=== PATIENT | female | born 1955 | race Caucasian/White ===

== ENCOUNTER 2017-09-25 12:49 | Inpatient (IN) | payer OTHER ==
[~2017-09-25] VITALS: Ht 160 cm; Wt 35.8 kg
[2017-09-25] MEDS ORDERED: SODIUM CHLORIDE 0.9% 500ML 500 ML IV STA (13:11)
[2017-09-25] MEDS ORDERED: CLINDAMYCIN PHOS 900MG/ D5W 50 50 ML IV ONE (13:15)
[2017-09-25] MEDS ORDERED: HYDROCODONE/APAP 10MG-325MG TAB PO ONE (13:15)
--- NOTE | 2017-09-25 14:48 | Diagnostic Imaging Report ---
PROCEDURE:X-RAY RIGHT FOOT, COMPLETE COMPARISON:None. INDICATIONS:SWELLING TWO WEEKS FINDINGS: Normal mineralization. No acute, displaced fracture or dislocation. No areas of cortical erosion or destruction. Degenerative changes in the midfoot/hindfoot joints. Large anterior calcaneal enthesophyte. Marked soft tissue swelling in the plantar and dorsal aspect of the foot. CONCLUSION: Marked soft tissue swelling in the plantar and dorsal aspect of the foot, without acute, displaced fracture or dislocation. Orion Smith M.D. Dictated by: Orion Smith M.D. on 09/25/2017 at 14:48 Electronically approved by: Orion Smith M.D. on 09/25/2017 at 14:48
[2017-09-25 16:11] LABS: BASOPHILS % 0.3 % (0.0-1.0); EOSINOPHILS # (AUTO) 0.2 (0.0-0.4); HEMATOCRIT 38.5 % (34.2-44.1); HEMOGLOBIN 13.4 g/dL (12.0-16.0); LYMPHOCYTES # (AUTO) 2.3 (1.0-3.2); LYMPHOCYTES % 14.8 % (18.0-39.1); MEAN CORPUSCULAR HEMOGLOBIN 29.6 pg (28-32); MEAN CORPUSCULAR HGB CONC 34.8 g/dL (31-35); MEAN CORPUSCULAR VOLUME 85.2 fL (81-99); MONOCYTES # (AUTO) 0.9 (0.2-0.8); MONOCYTES % 5.8 % (4.4-11.3); NEUTROPHILS # (AUTO) 11.8 (2.1-6.9); NEUTROPHILS % 77.7 % (38.7-80.0); PLATELET COUNT 452 x10e3/uL (140-360); RED BLOOD COUNT 4.52 x10e6/uL (3.6-5.1); RED CELL DISTRIBUTION WIDTH 12.1 % (11.7-14.4)
[2017-09-25 16:13] LABS: BILIRUBIN,URINE NEGATIVE (NEGATIVE); CLARITY,URINE CLOUDY (CLEAR); COLOR,URINE YELLOW (YELLOW); KETONES,URINE 1+ (NEGATIVE); LEUKOCYTE ESTERASE ,URINE 2+ (NEGATIVE); NITRITE,URINE NEGATIVE (NEGATIVE); PROTEIN,URINE DIPSTICK 1+ (NEGATIVE); URINE UROBILINOGEN 1 mg/dL (0.2 - 1)
[2017-09-25] MEDS ORDERED: METFORMIN HCL850 MG PO (16:13)
[2017-09-25] MEDS ORDERED: GLIPIZIDE5 MG PO (16:13)
[2017-09-25] MEDS ORDERED: NEXIUM40 MG PO (16:13)
[2017-09-25 16:25] LABS: BACTERIA,URINE FEW /HPF; EPITHELIAL CELLS,URINE RARE /LPF; YEAST,URINE FEW
[2017-09-25 16:32] LABS: ALANINE AMINOTRANSFERASE 13 IU/L (0-55); ALBUMIN 3.4 g/dL (3.5-5.0); ALBUMIN/GLOBULIN RATIO 0.7 (0.8-2.0); ALKALINE PHOSPHATASE 128 IU/L (40-150); ANION GAP 13.9 mmol/L (8-16); BLOOD UREA NITROGEN 10 mg/dL (7-26); BUN/CREATININE RATIO 11 (6-25); CALCIUM 9.6 mg/dL (8.4-10.2); CARBON DIOXIDE 23 mmol/L (22-29); CHLORIDE 100 mmol/L (98-107); CREATININE, SERUM 0.87 mg/dL (0.57-1.11); EST GLOMERULAR FILTRATION RATE > 60 ML/MIN (60-); GLUCOSE 266 mg/dL (74-118); POTASSIUM 3.9 mmol/L (3.5-5.1); SODIUM 133 mmol/L (136-145)
[2017-09-25] MEDS ORDERED: DEXTROSE 50% SYRINGE 50 ML IV PRN (17:00)
[2017-09-25] MEDS ORDERED: SODIUM CHLORIDE FLUSH 10 ML SYR INJ PRN (17:00)
--- OUTSIDE RECORDS SUMMARY | 2017-09-25 19:26 | XMS REPORT ---
Author [facility] Address Unknown Phone Unavailable Care Team Providers Care Afterschool Name Role Phone JULIANA GUEVARA Unavailable Unavailable Problems This patient has no known problems. Allergies, Adverse Reactions, Alerts This patient has no known allergies or adverse reactions. Medications This patient has no known medications. Results Test Description Test Time Test Comments Text Results Atomic Results Result Comments FOOT RIGHT COMPLETE [place] [address] Patient Name: VELIA HUI MR #: [id number] : 1955 Age/Sex: 61/F Req #: [id number] Adm Physician: Ordered by: CLARISSE CAMARILLO [employer]BC[employer]ACT MANAGER Report #: [id number] Location: ER Room/Bed: Procedure: [id number] DX/FOOT RIGHT COMPLETE Exam Date: Exam Time: REPORT STATUS: Signed PROCEDURE: X-RAY RIGHT FOOT, COMPLETE COMPARISON: None. INDICATIONS: SWELLING TWO WEEKS FINDINGS: Normal mineralization. No acute, displaced fracture or dislocation. No areas of cortical erosion or destruction. Degenerative changes in the midfoot/hindfoot joints. Large anterior calcaneal enthesophyte. Marked soft tissue swelling in the plantar and dorsal aspect of the foot. CONCLUSION: Marked soft tissue swelling in the plantar and dorsal aspect of the foot, without acute, displaced fracture or dislocation. Krysta Smith M.D. Dictated by: Krysta Smith M.D. on 09/25/2017 at 14:48 Electronically approved by: Krysta Smith M.D. on 09/25/2017 at 14:48 Dictated By: KRYSTA SMITH MD [id number] Transcribed By: MERNA on 09/25/17 1448 COPY TO: CLARISSE CAMARILLO NP
[2017-09-25] MEDS: INSULIN REGULAR, HUMAN 100 UNIT/1 ML 3ML VIAL SQ SCH (21:20)
[2017-09-25 22:00] VITALS: BP 119/72
[2017-09-25 23:20] VITALS: BP 167/77
[2017-09-25] MEDS: CLONIDINE HCL 0.1 MG TAB PO PRN (23:39)
[2017-09-25] MEDS: ACETAMINOPHEN 325 MG TAB PO PRN (23:39)
[2017-09-25] MEDS: CLINDAMYCIN PHOS 900MG/ D5W 50 50 ML IV SCH (23:54)
[2017-09-26 03:34] VITALS: BP 126/69
[2017-09-26 05:00] VITALS: BP 102/57
[2017-09-26] MEDS ORDERED: PROVENTIL HFA6.7 GM IH (05:25)
[2017-09-26] MEDS: CLINDAMYCIN PHOS 900MG/ D5W 50 50 ML IV SCH ×3 (06:15→21:11)
[2017-09-26] MEDS: HYDROMORPHONE 1MG/1ML INJ IV PRN (06:32)
[2017-09-26] MEDS: INSULIN REGULAR, HUMAN 100 UNIT/1 ML 3ML VIAL SQ SCH ×4 (07:30→20:53)
[2017-09-26] MEDS: ONDANSETRON HCL INJ 2 MG/ML VIAL IV PRN (08:19)
[2017-09-26 08:28] VITALS: BP 180/86
[2017-09-26] MEDS ORDERED: SODIUM CHLORIDE 0.9% 250ML 250 ML ONE (15:31)
[2017-09-26] MEDS: ACETAMINOPHEN 325 MG TAB PO PRN (19:37)
[2017-09-26 20:00] VITALS: BP 142/76
[2017-09-27] VITALS (7 sets, daily range): BP systolic 134–180; BP diastolic 66–84
[2017-09-27] MEDS: ONDANSETRON HCL INJ 2 MG/ML VIAL IV PRN ×2 (00:54→08:35)
[2017-09-27] MEDS: HYDROMORPHONE 1MG/1ML INJ IV PRN ×3 (00:54→19:44)
[2017-09-27] MEDS: CLINDAMYCIN PHOS 900MG/ D5W 50 50 ML IV SCH ×3 (06:00→22:00)
[2017-09-27] MEDS: INSULIN REGULAR, HUMAN 100 UNIT/1 ML 3ML VIAL SQ SCH ×4 (07:45→21:00)
[2017-09-27] MEDS: CLONIDINE HCL 0.1 MG TAB PO PRN (08:30)
[2017-09-28] VITALS (7 sets, daily range): BP systolic 115–170; BP diastolic 50–80
[2017-09-28] MEDS: CLINDAMYCIN PHOS 900MG/ D5W 50 50 ML IV SCH ×2 (05:02→13:43)
[2017-09-28] MEDS: ONDANSETRON HCL INJ 2 MG/ML VIAL IV PRN (05:03)
[2017-09-28] MEDS: HYDROMORPHONE 1MG/1ML INJ IV PRN ×2 (05:03→22:15)
[2017-09-28] MEDS: INSULIN REGULAR, HUMAN 100 UNIT/1 ML 3ML VIAL SQ SCH ×4 (07:35→21:00)
[2017-09-28 08:51] LABS: BASOPHILS % 0.4 % (0.0-1.0); EOSINOPHILS # (AUTO) 0.2 (0.0-0.4); EOSINOPHILS % 2.3 % (0.0-6.0); HEMATOCRIT 33.6 % (34.2-44.1); HEMOGLOBIN 11.5 g/dL (12.0-16.0); LYMPHOCYTES % 19.4 % (18.0-39.1); MEAN CORPUSCULAR HEMOGLOBIN 29.5 pg (28-32); MEAN CORPUSCULAR HGB CONC 34.2 g/dL (31-35); MEAN CORPUSCULAR VOLUME 86.2 fL (81-99); MONOCYTES # (AUTO) 0.7 (0.2-0.8); MONOCYTES % 6.6 % (4.4-11.3); NEUTROPHILS # (AUTO) 7.3 (2.1-6.9); NEUTROPHILS % 70.8 % (38.7-80.0); PLATELET COUNT 440 x10e3/uL (140-360); RED CELL DISTRIBUTION WIDTH 11.9 % (11.7-14.4)
[2017-09-29] VITALS (7 sets, daily range): BP systolic 154–188; BP diastolic 67–85
[2017-09-29] MEDS: CLINDAMYCIN PHOS 900MG/ D5W 50 50 ML IV SCH ×4 (00:38→21:33)
[2017-09-29] MEDS: ACETAMINOPHEN 325 MG TAB PO PRN ×2 (01:16→17:15)
[2017-09-29 07:09] LABS: BASOPHILS % 0.4 % (0.0-1.0); EOSINOPHILS # (AUTO) 0.4 (0.0-0.4); EOSINOPHILS % 3.5 % (0.0-6.0); HEMATOCRIT 34.3 % (34.2-44.1); HEMOGLOBIN 11.6 g/dL (12.0-16.0); LYMPHOCYTES # (AUTO) 2.3 (1.0-3.2); LYMPHOCYTES % 20.7 % (18.0-39.1); MEAN CORPUSCULAR HEMOGLOBIN 29.5 pg (28-32); MEAN CORPUSCULAR HGB CONC 33.8 g/dL (31-35); MEAN CORPUSCULAR VOLUME 87.3 fL (81-99); MONOCYTES % 8.9 % (4.4-11.3); NEUTROPHILS # (AUTO) 7.3 (2.1-6.9); NEUTROPHILS % 66.1 % (38.7-80.0); PLATELET COUNT 474 x10e3/uL (140-360); RED BLOOD COUNT 3.93 x10e6/uL (3.6-5.1); RED CELL DISTRIBUTION WIDTH 11.8 % (11.7-14.4)
--- NOTE | 2017-09-29 07:40 | Diagnostic Imaging Report ---
TECHNIQUE: Magnetic resonance imaging of the RIGHT foot (forefoot) was performed WITHOUT injected contrast. HISTORY: Cellulitis, pain, swelling, bowel of foot, stepped on tack COMPARISON: Radiographs of the right foot the 2017. DISCUSSION: Bone: No focal or infiltrative bone marrow replacing abnormality. No acute fracture or osteonecrosis. Joints: No dislocation. No effusion. Scattered arthropathy, most notably mild osteoarthrosis of the first metatarsophalangeal joint and moderate arthropathy of the tarsometatarsal joints, which may be a combination of osteoarthrosis and CPPD arthropathy. Soft Tissues: A focal, somewhat ill-defined 1.6 cm (AP) x 2.2 cm (ML) x 0.7 cm (CC) fluid intensity collection within the superficial plantar soft tissues overlying the base of the second proximal phalanx. Enhancement characteristics cannot be assessed. IMPRESSION: 1. No evidence of osteomyelitis. 2. Small plantar soft tissue fluid collection, could reflect early abscess formation in the appropriate setting. Signed by: Dr. Grzegorz Flower D.O., M.M.M. on 09/29/2017 7:36 AM
[2017-09-29 08:11] LABS: ANION GAP 13.5 mmol/L (8-16); BLOOD UREA NITROGEN 12 mg/dL (7-26); BUN/CREATININE RATIO 15 (6-25); CALCIUM 9.3 mg/dL (8.4-10.2); CARBON DIOXIDE 26 mmol/L (22-29); CHLORIDE 99 mmol/L (98-107); EST GLOMERULAR FILTRATION RATE > 60 ML/MIN (60-); GLUCOSE 287 mg/dL (74-118); POTASSIUM 4.5 mmol/L (3.5-5.1); SODIUM 134 mmol/L (136-145)
[2017-09-29] MEDS: INSULIN REGULAR, HUMAN 100 UNIT/1 ML 3ML VIAL SQ SCH ×4 (09:31→21:43)
[2017-09-29] MEDS: CLONIDINE HCL 0.1 MG TAB PO PRN (09:31)
[2017-09-29] MEDS: HYDROMORPHONE 1MG/1ML INJ IV PRN ×2 (10:00→19:22)
[2017-09-29] MEDS: ONDANSETRON HCL INJ 2 MG/ML VIAL IV PRN ×2 (10:00→19:22)
[2017-09-30] VITALS (9 sets, daily range): BP systolic 131–163; BP diastolic 67–94
[2017-09-30] MEDS: ONDANSETRON HCL INJ 2 MG/ML VIAL IV PRN ×4 (04:30→21:55)
[2017-09-30] MEDS: HYDROMORPHONE 1MG/1ML INJ IV PRN ×4 (04:30→21:55)
[2017-09-30] MEDS: CLINDAMYCIN PHOS 900MG/ D5W 50 50 ML IV SCH ×3 (05:47→21:38)
[2017-09-30] MEDS: INSULIN REGULAR, HUMAN 100 UNIT/1 ML 3ML VIAL SQ SCH ×4 (08:41→21:00)
[2017-09-30] MEDS ORDERED: MAGNESIUM/ALUMINUM/SIMETHICONE 30 ML UDC PO PRN (18:30)
[2017-10-01] VITALS (7 sets, daily range): BP systolic 138–176; BP diastolic 68–95
[2017-10-01] MEDS: CLONIDINE HCL 0.1 MG TAB PO PRN (00:30)
[2017-10-01] MEDS: CLINDAMYCIN PHOS 900MG/ D5W 50 50 ML IV SCH ×3 (05:08→21:00)
[2017-10-01] MEDS: ONDANSETRON HCL INJ 2 MG/ML VIAL IV PRN ×2 (06:30→23:46)
[2017-10-01] MEDS: HYDROMORPHONE 1MG/1ML INJ IV PRN ×2 (06:30→23:46)
[2017-10-01] MEDS: INSULIN REGULAR, HUMAN 100 UNIT/1 ML 3ML VIAL SQ SCH ×4 (08:00→20:59)
--- NOTE | 2017-10-01 11:08 | Consultation ---
DATE OF CONSULTATION: September 29, 2017 CHIEF COMPLAINT AND HISTORY OF CHIEF COMPLAINT: Ms. Raymond is a most pleasant 61-year-old female who was admitted to [facility] through the emergency room complaining of severe pain and swelling of the right foot. She stated that, after thinking back about it, she does remember stepping on a tack in her house several weeks ago. She did not clean it and continued working and ultimately experienced this pain, redness and swelling. PREVIOUS MEDICAL HISTORY: Includes diabetes. She complains of no other significant previous medical history and was in her normal state of care before this happened. She was diagnosed with diabetes some 20 years ago. REVIEW OF SYSTEMS: Otherwise negative. ALLERGIES: SHE IS ALLERGIC TO PENICILLIN. SOCIAL HISTORY: The patient states she is not a smoker and does not use alcohol. PHYSICAL EXAMINATION OF LOWER EXTREMITIES VASCULAR STATUS: The patient has palpable pedal pulses, both dorsalis pedis and posterior tibial. Skin temperature is warm, particularly on the right foot. NEUROLOGIC: The patient has loss of protective sensation, but does seem to have severe pain to palpation, even light touch, at this point in the right infected extremity. There is a callused area on the plantar aspect of the right foot. DERMATOLOGIC: No other significant lesions are present. MUSCULOSKELETAL: The patient has what appears to be an abscess on the plantar aspect of the right foot. Radiographs are negative. I have ordered an MRI. We will review. If an abscess is present, I and D would be indicated. We will schedule accordingly. Job#: [id number]
[2017-10-01] MEDS ORDERED: CLINDAMYCIN PHOS 900MG/ D5W 50 50 ML IV ONE (14:26)
[2017-10-01] MEDS ORDERED: BACITRACIN 50,000 UNIT VIAL ONE (14:43)
[2017-10-01] MEDS ORDERED: NEOSTIGMINE 1 MG/ML 10ML VIAL ONE (15:35)
[2017-10-01] MEDS ORDERED: HYDROMORPHONE 1MG/1ML INJ ONE (16:29)
[2017-10-01] MEDS ORDERED: FENTANYL CITRATE/PF 100MCG/2 ML INJ ONE ×2 (16:32→19:18)
--- NOTE | 2017-10-01 18:23 | Operative Report ---
DATE OF PROCEDURE: October 01, 2017 AGE: 61 ROOM NUMBER: [id number] [facility] PREOPERATIVE DIAGNOSIS: Abscess, cellulitis, right foot. POSTOPERATIVE DIAGNOSES: Abscess, cellulitis, right foot. TITLE OF THE OPERATION: Incision and drainage of the abscessed area of the right foot with deep wound cultures. ANESTHESIA: General endotracheal. HEMOSTASIS: None used. PROCEDURE IN DETAIL: The patient was taken to the operating room in a mildly sedated state, placed upon the operating table in supine position. Following induction of general anesthetic, the right lower extremity was elevated to 60 degrees and placed upon the operating table prior to performing the following procedure. I and D of the plantar aspect of the right foot. There is a prominent area with underlying abscess. A linear longitudinal incision was made [id number] the skin and subcutaneous tissue. A significant amount of necrotic wound debris is present in the plantar aspect of the foot along with purulent exudate. Deep wound culture and sensitivities were obtained. Probing of all plantars spaces expresses purulence and all planes were irrigated with copious amounts of sterile saline solution. These areas were then packed with iodoform gauze. There was very minimal bleeding, although there was some in the superficial tissues a fairly significant skin slough of partial thickness skin was resected from the wound. The planes across the entirety of forefoot were opened including each interdigital space and the 1st metatarsophalangeal joint, which was bright red and inflamed. Those areas having thus been treated with Bactopen after copious irrigation and deep wound culture and sensitivity. Appropriate mild compressive dressings were applied and patient left the operating room with vital signs stable, in apparent satisfactory condition, having tolerated both anesthetic and the procedure very well. No closure was performed. This will remain in house for dressing changes and local wound care, as well as IV antibiotic, which needs to be continued at this point due to the significant amount of necrosis encountered on the plantar aspect of the foot. She may be able to transition to an outpatient IV antibiotic and local wound care at some point. Job#: [id number]
[2017-10-01] MEDS ORDERED: METOCLOPRAMIDE HCL 10 MG/2ML VIAL ONE (18:54)
[2017-10-01] MEDS ORDERED: ONDANSETRON HCL INJ 2 MG/ML VIAL ONE (18:54)
[2017-10-01] MEDS ORDERED: PROPOFOL IV EMULSION 10 MG/ML 20 ML VIAL ONE (18:54)
[2017-10-01] MEDS ORDERED: DESFLURANE 240 ML BTL INH ONE (18:54)
[2017-10-01] MEDS ORDERED: LIDOCAINE HCL 2% LOCAL INJ 5 ML SDV VIAL INJ ONE (18:54)
[2017-10-01] MEDS ORDERED: MIDAZOLAM HCL 2 MG/2 ML VIAL ONE (19:18)
[2017-10-01] MEDS: ACETAMINOPHEN 325 MG TAB PO PRN (21:00)
[2017-10-02] VITALS: BP 127/74
[2017-10-02 00:07] VITALS: BP 127/74
[2017-10-02 01:10] VITALS: BP 127/74
[2017-10-02] MEDS: ACETAMINOPHEN 325 MG TAB PO PRN ×2 (03:26→09:18)
[2017-10-02] MEDS: ONDANSETRON HCL INJ 2 MG/ML VIAL IV PRN ×2 (05:38→21:46)
[2017-10-02] MEDS: HYDROMORPHONE 1MG/1ML INJ IV PRN ×4 (05:38→21:46)
[2017-10-02] MEDS: CLINDAMYCIN PHOS 900MG/ D5W 50 50 ML IV SCH ×3 (05:38→21:46)
[2017-10-02 08:00] VITALS: BP 138/78
[2017-10-02] MEDS: INSULIN REGULAR, HUMAN 100 UNIT/1 ML 3ML VIAL SQ SCH ×4 (08:00→21:46)
[2017-10-02] MEDS: PANTOPRAZOLE SOD 40 MG TABEC PO SCH (09:18)
[2017-10-02 12:00] VITALS: BP 182/88
--- NOTE | 2017-10-02 12:21 | Progress Note ---
DATE: October 02, 2017 PODIATRY PROGRESS NOTE Postop day number 1, status post I\T\D and deep wound debridement plantar aspect of her right foot. The dressing was changed today and packing removed. Patient still has significant erythema, and drainage is minimal today. She has no appreciable dorsalis pedis pulse to palpation. I have ordered an arterial Doppler for further evaluation and will consider vascular consultation. She had minimal bleeding at the time of surgery. The wound base itself is necrotic and will require continued IV antibiotics and local wound care. Job#: [id number] EV
[2017-10-02 16:00] VITALS: BP 157/90
[2017-10-03] VITALS (8 sets, daily range): BP systolic 132–172; BP diastolic 67–82
[2017-10-03] MEDS: HYDROMORPHONE 1MG/1ML INJ IV PRN ×4 (04:46→22:53)
[2017-10-03] MEDS: ONDANSETRON HCL INJ 2 MG/ML VIAL IV PRN ×4 (04:49→22:53)
[2017-10-03] MEDS: CLINDAMYCIN PHOS 900MG/ D5W 50 50 ML IV SCH ×3 (05:24→21:30)
[2017-10-03] MEDS ORDERED: PANTOPRAZOLE SOD 40 MG TABEC PO SCH (07:30)
[2017-10-03] MEDS: PANTOPRAZOLE SOD 40 MG TABEC PO SCH (07:46)
[2017-10-03] MEDS: INSULIN REGULAR, HUMAN 100 UNIT/1 ML 3ML VIAL SQ SCH ×4 (07:47→21:30)
[2017-10-03] MEDS: CLONIDINE HCL 0.1 MG TAB PO PRN (12:27)
[2017-10-03 21:10] LABS: CHOL/HDL RATIO 3.7 (3.0-3.6)
[2017-10-03 21:18] LABS: BLOOD UREA NITROGEN 11 mg/dL (7-26); BUN/CREATININE RATIO 15 (6-25); CALCIUM 8.9 mg/dL (8.4-10.2); CARBON DIOXIDE 24 mmol/L (22-29); CHLORIDE 97 mmol/L (98-107); CREATININE, SERUM 0.75 mg/dL (0.57-1.11); EST GLOMERULAR FILTRATION RATE > 60 ML/MIN (60-); GLUCOSE 282 mg/dL (74-118); SODIUM 130 mmol/L (136-145)
[2017-10-03] MEDS ORDERED: IOPAMIDOL 370 MG/ML 200 ML INFUS..BTL INJ ONE (22:33)
[2017-10-03] MEDS ORDERED: SODIUM CHLORIDE 0.9% 50ML 100 ML ONE (22:33)
[2017-10-04] VITALS (8 sets, daily range): BP systolic 134–185; BP diastolic 69–93
[2017-10-04] MEDS: CLINDAMYCIN PHOS 900MG/ D5W 50 50 ML IV SCH ×3 (05:20→21:27)
[2017-10-04] MEDS: PANTOPRAZOLE SOD 40 MG TABEC PO SCH (07:25)
[2017-10-04] MEDS: INSULIN REGULAR, HUMAN 100 UNIT/1 ML 3ML VIAL SQ SCH ×5 (07:26→20:52)
[2017-10-04 07:35] LABS: BASOPHILS % 0.3 % (0.0-1.0); EOSINOPHILS # (AUTO) 0.3 (0.0-0.4); EOSINOPHILS % 2.5 % (0.0-6.0); HEMATOCRIT 33.4 % (34.2-44.1); HEMOGLOBIN 11.5 g/dL (12.0-16.0); LYMPHOCYTES # (AUTO) 1.7 (1.0-3.2); LYMPHOCYTES % 14.8 % (18.0-39.1); MEAN CORPUSCULAR HEMOGLOBIN 29.4 pg (28-32); MEAN CORPUSCULAR HGB CONC 34.4 g/dL (31-35); MEAN CORPUSCULAR VOLUME 85.4 fL (81-99); MONOCYTES # (AUTO) 0.8 (0.2-0.8); MONOCYTES % 7.2 % (4.4-11.3); NEUTROPHILS # (AUTO) 8.6 (2.1-6.9); NEUTROPHILS % 74.8 % (38.7-80.0); PLATELET COUNT 492 x10e3/uL (140-360); RED BLOOD COUNT 3.91 x10e6/uL (3.6-5.1); RED CELL DISTRIBUTION WIDTH 11.9 % (11.7-14.4)
[2017-10-04] MEDS: HYDROMORPHONE 1MG/1ML INJ IV PRN ×2 (07:46→08:41)
[2017-10-04] MEDS: ONDANSETRON HCL INJ 2 MG/ML VIAL IV PRN ×3 (07:46→22:20)
--- NOTE | 2017-10-04 08:10 | Diagnostic Imaging Report ---
EXAM: CTA Abdomen and Pelvis with iliofemoral runoff WITH CONTRAST. DATE: 10/03/2017 6:33 PM INDICATION: COMPARISON: None TECHNIQUE: CT angiogram of the abdomen and pelvis with iliofemoral runoff was obtained after the administration of IV contrast. Prospective gating was performed. Images reviewed in the axial, coronal, and sagittal planes. 3D reconstructions performed on off-line workstation. IV Contrast: See technologist worksheet. Total DLP: 930 mGy*cm Est. Eff. Dose DLP x 0.015 x size factor mSv (CTDIvol has been reviewed and is below limits set by [facility]). FINDINGS: VASCULAR: Abdominal Aorta Mesenteric Segment: 20 mm. Abdominal Aorta Just Below Renal Arteries: 18 mm. Mid Infrarenal Abdominal Aorta: 17 mm. Abdominal Aortal at Bifurcation: 15 mm. Mesenteric Arteries: Mild atherosclerotic changes origin celiac trunk. Otherwise, celiac trunk, SMA, single renal arteries, and ULI patent. Other: No aneurysm or dissection. Right: Right Common Iliac Artery: No significant atherosclerotic change or narrowing. Right external iliac artery: No significant atherosclerotic change or narrowing. Right internal iliac artery: Moderate atherosclerotic changes and mild to moderate scattered areas of narrowing. Right common femoral artery: Moderate atherosclerotic changes distally just before bifurcation of the profunda with no significant narrowing. Right profunda femoral artery: No significant atherosclerotic change or narrowing. Right femoral artery: No significant atherosclerotic change or narrowing. Right popliteal artery: No significant atherosclerotic change or narrowing. Below the knee: Posterior tibial artery patent to the ankle. Mid to distal fibular artery occluded. Distal anterior tibial artery occluded. Left: Left Common Iliac Artery: No significant atherosclerotic change or narrowing. Left external iliac artery: No significant atherosclerotic change or narrowing. Left internal iliac artery: Moderate atherosclerotic changes with mild to moderate scattered areas of narrowing. Left common femoral artery: No significant atherosclerotic change or narrowing. Left profunda femoral artery: No significant atherosclerotic change or narrowing. Left femoral artery: No significant atherosclerotic change or narrowing. Left popliteal artery: At least moderate atherosclerotic changes and moderate narrowing mid to distal. Below the knee: Diminutive posterior tibial artery patent to the ankle. Mid to distal fibular artery occluded. Distal anterior tibial artery occluded. Abdomen: Lung Bases: Atelectasis. Solid Organs: Probable cyst superior right kidney. Otherwise, liver, adrenals, kidneys, and spleen unremarkable. Moderate fatty replacement of the pancreas. Upper GI Tract: Partial decompression of the stomach limits evaluation. No small bowel obstructive changes. Lymph Nodes: No suspicious adenopathy. Other: None. Pelvis: Bladder: Decompressed. Other: Uterus/adnexa poorly evaluated CT. Colon: Moderate stool. Bones: No acute findings. IMPRESSION: 1. Advanced small vessel disease below the knees bilaterally with mid to distal occlusion posterior tibial and tibial arteries as above. 2. No significant aortoiliac disease. 3. Please see above for full details. Signed by: Dr. Benjamin Vogel MD on 10/04/2017 8:07 AM
[2017-10-04 08:13] LABS: ANION GAP 13.9 mmol/L (8-16); BLOOD UREA NITROGEN 11 mg/dL (7-26); BUN/CREATININE RATIO 15 (6-25); CALCIUM 9.1 mg/dL (8.4-10.2); CARBON DIOXIDE 24 mmol/L (22-29); CHLORIDE 99 mmol/L (98-107); CREATININE, SERUM 0.71 mg/dL (0.57-1.11); EST GLOMERULAR FILTRATION RATE > 60 ML/MIN (60-); GLUCOSE 232 mg/dL (74-118); POTASSIUM 3.9 mmol/L (3.5-5.1); SODIUM 133 mmol/L (136-145)
[2017-10-04] MEDS: ASPIRIN 81 MG ENTERIC COATED PO SCH (08:41)
--- NOTE | 2017-10-04 12:24 | Consultation ---
DATE OF CONSULTATION: October 03, 2017 REQUESTING PHYSICIAN: Dr. Parish Hoover. REASON FOR CONSULTATION: Peripheral arterial disease. HISTORY OF PRESENT ILLNESS: This is a 61-year-old woman with history of hypertension, diabetes mellitus, and asthma who presented with right foot pain and swelling. She reports that she stepped on a tac approximately one week prior. She did not clean the wound and ultimately developed swelling, erythema and pain in the right lower extremity. She went to an outside ER and was prescribed antibiotics with instructions to present for further care if her wound did not improve. She, therefore presented to [facility] ER for further evaluation. She denied chest pain, shortness of breath, orthopnea, edema or PND. She does endorse occasional palpitations. REVIEW OF SYSTEMS: Negative except as per HPI. PAST MEDICAL HISTORY: Diabetes mellitus, hypertension, asthma. PAST SURGICAL HISTORY: Cholecystectomy, appendectomy. SOCIAL HISTORY: She reports she quit smoking at 26 years old. No alcohol or illicit drugs. FAMILY HISTORY: Noncontributory. ALLERGIES: PLEASE SEE EMR. MEDICATIONS: Please see medication list. PHYSICAL EXAMINATION VITAL SIGNS: Temperature 97.4 degrees, pulse 55, respiratory rate 18, blood pressure 159/79, oxygen saturation 97% on room air. GENERAL: A well-nourished, well-developed woman in no acute distress. HEENT: Normocephalic, atraumatic. Pupils are equal. No scleral icterus. NECK: Supple. No thyromegaly or cervical lymphadenopathy. No carotid bruits. LUNGS: Clear to auscultation bilaterally. No wheezes or crackles. CARDIOVASCULAR: Normal rate, regular rhythm. No murmurs. Normal S1 and S2. ABDOMEN: Soft and nontender. EXTREMITIES: Right lower extremity is edematous. Dressing is in place in the right foot. LABORATORY DATA: None today. MRI foot: No evidence of osteomyelitis, small plantar soft tissue fluid collection could reflect early abscess. Bilateral lower extremity Dopplers: Elevated velocities are noted in the right posterior tibial artery with monophasic waveform in the anterior and posterior tibial arteries suggesting predominantly infrapopliteal disease. IMPRESSION 1. Peripheral arterial disease suggested by noninvasive Doppler evaluation. 2. Right lower extremity abscess and cellulitis, status post incision and drainage. 3. Diabetes mellitus. 4. Hypertension. 5. Asthma. RECOMMENDATIONS: The bilateral lower extremity arterial Doppler images were reviewed. We will obtain CT angiogram of the abdomen with lower extremity runoff for further evaluation. In the meantime, check fasting lipid panel and start aspirin. Thank you for this consult. We will continue to follow. Job#: [id number] SUYAPA
[2017-10-04] MEDS ORDERED: METOPROLOL TARTRATE INJ 1 MG/ML VIAL IV ONE (17:00)
[2017-10-04] MEDS: HYDROMORPHONE 2MG/ML INJ IV PRN (17:55)
[2017-10-04] MEDS ORDERED: INSULIN DETEMIR 100 UNIT/ML PEN SQ SCH (21:00)
--- NOTE | 2017-10-04 23:01 | Progress Note ---
DATE: October 04, 2017 CARDIOLOGY PROGRESS NOTE SUBJECTIVE: Patient denies chest pain or shortness of breath. OBJECTIVE VITAL SIGNS: Temperature 97.4 degrees, pulse 71, respiratory rate 18, blood pressure 136/73, oxygen saturation 97% on room air. GENERAL: Awake, alert, in no acute distress. LUNGS: Clear to auscultation bilaterally. No wheezes or crackles. CARDIOVASCULAR: Normal rate, regular rhythm. No murmur. Normal S1/S2. ABDOMEN: Soft, nontender. EXTREMITIES: Right lower extremity is edematous with dressing in place on the right foot. LABS: WBC 11.46, hemoglobin 11.5, hematocrit 33.4, platelets 492,000. Sodium 133, potassium 3.9, chloride 99, CO2 24, BUN 11, creatinine 0.71. CT of abdomen and pelvis with abdominal aortogram and lower extremity runoff revealed moderate atherosclerotic changes with occlusion of the peroneal and distal anterior arteries on the right with patent posterior tibial artery to ankle on the right. The left had moderate atherosclerotic changes in the internal iliac artery and popliteal artery with patent posterior tibial artery to the ankle and occlusion of the mid to distal peroneal and anterior tibial arteries. IMPRESSIONS 1. Peripheral arterial disease predominantly infrapopliteal. 2. Right lower extremity abscess and cellulitis, status post incision and drainage. 3. Diabetes mellitus. 4. Hypertension. 5. Asthma. RECOMMENDATIONS: Continue current cardiac medications. Start statin therapy. Monitor wound for healing. If the wound fails to heal, may need peripheral angiogram. However, disease is unfortunately mostly infrapopliteal. Thank you for this consult. We will continue to follow. Job#: [id number]
[2017-10-05] VITALS (8 sets, daily range): BP systolic 101–176; BP diastolic 54–96
[2017-10-05] MEDS: HYDROMORPHONE 2MG/ML INJ IV PRN ×3 (05:00→17:03)
[2017-10-05] MEDS: ONDANSETRON HCL INJ 2 MG/ML VIAL IV PRN ×2 (05:01→10:47)
[2017-10-05] MEDS: CLINDAMYCIN PHOS 900MG/ D5W 50 50 ML IV SCH ×2 (06:05→13:56)
[2017-10-05] MEDS: INSULIN REGULAR, HUMAN 100 UNIT/1 ML 3ML VIAL SQ SCH ×7 (07:31→21:02)
[2017-10-05] MEDS: PANTOPRAZOLE SOD 40 MG TABEC PO SCH (07:36)
[2017-10-05 07:56] LABS: ALANINE AMINOTRANSFERASE 7 IU/L (0-55); ALBUMIN 2.5 g/dL (3.5-5.0); ALBUMIN/GLOBULIN RATIO 0.5 (0.8-2.0); ALKALINE PHOSPHATASE 76 IU/L (40-150); ANION GAP 12.9 mmol/L (8-16); BLOOD UREA NITROGEN 10 mg/dL (7-26); BUN/CREATININE RATIO 15 (6-25); CALCIUM 9.3 mg/dL (8.4-10.2); CARBON DIOXIDE 25 mmol/L (22-29); CHLORIDE 102 mmol/L (98-107); CREATININE, SERUM 0.68 mg/dL (0.57-1.11); EST GLOMERULAR FILTRATION RATE > 60 ML/MIN (60-); GLUCOSE 180 mg/dL (74-118); POTASSIUM 3.9 mmol/L (3.5-5.1); SODIUM 136 mmol/L (136-145)
[2017-10-05] MEDS: ASPIRIN 81 MG ENTERIC COATED PO SCH (08:48)
[2017-10-05] MEDS: CLONIDINE HCL 0.1 MG TAB PO PRN (09:01)
[2017-10-05] MEDS ORDERED: HYDROMORPHONE 1MG/1ML INJ ONE ×2 (10:42→17:03)
[2017-10-05 12:32] LABS: BASOPHILS % 0.3 % (0.0-1.0); EOSINOPHILS # (AUTO) 0.2 (0.0-0.4); EOSINOPHILS % 1.7 % (0.0-6.0); HEMATOCRIT 33.5 % (34.2-44.1); HEMOGLOBIN 11.6 g/dL (12.0-16.0); LYMPHOCYTES # (AUTO) 1.7 (1.0-3.2); LYMPHOCYTES % 15.8 % (18.0-39.1); MEAN CORPUSCULAR HEMOGLOBIN 29.4 pg (28-32); MEAN CORPUSCULAR HGB CONC 34.6 g/dL (31-35); MEAN CORPUSCULAR VOLUME 84.8 fL (81-99); MONOCYTES # (AUTO) 0.6 (0.2-0.8); MONOCYTES % 5.7 % (4.4-11.3); NEUTROPHILS # (AUTO) 8.4 (2.1-6.9); NEUTROPHILS % 76.1 % (38.7-80.0); PLATELET COUNT 523 x10e3/uL (140-360); RED BLOOD COUNT 3.95 x10e6/uL (3.6-5.1); RED CELL DISTRIBUTION WIDTH 11.9 % (11.7-14.4)
--- NOTE | 2017-10-05 13:44 | Progress Note ---
DATE: October 05, 2017 CARDIOLOGY PROGRESS NOTE SUBJECTIVE: The patient denies chest pain or shortness of breath. She reports she had nausea and vomiting last night after she was started on a new medication. OBJECTIVE GENERAL: Awake, alert and in no acute distress. LUNGS: Clear to auscultation bilaterally. No wheezes or crackles. CARDIOVASCULAR: Normal rate and regular rhythm. No murmur. Normal S1 and S2. ABDOMEN: Soft and nontender. EXTREMITIES: Right lower extremity dressing noted. CARDIAC MEDICATIONS: Aspirin 81 mg p.o. daily. LABS: Sodium 136, potassium 3.9, chloride 102, CO2 25, BUN 10, creatinine 0.68. IMPRESSION 1. Peripheral arterial disease predominately infrapopliteal with what appears to be single vessel runoff via the posterior tibial arteries bilaterally. 2. Right lower extremity cellulitis: Status post incision and drainage. 3. Diabetes mellitus. 4. Hypertension. 5. Asthma. RECOMMENDATIONS: Continue current cardiac medications. Start statin therapy. Monitor wound for feeling. If wound fails to heal, will need to proceed with peripheral angiogram. Thank you for this consult. We will continue to follow. Job#: [id number] MARIBEL
[2017-10-05] MEDS: ATORVASTATIN 10 MG TAB PO SCH (21:09)
[2017-10-06 01:05] VITALS: BP 136/80
[2017-10-06 05:41] VITALS: BP 175/90
[2017-10-06 06:51] LABS: CHOL/HDL RATIO 4.1 (3.0-3.6)
[2017-10-06] MEDS: CLONIDINE HCL 0.1 MG TAB PO PRN (07:42)
[2017-10-06 08:00] VITALS: BP 180/100
[2017-10-06] MEDS: INSULIN REGULAR, HUMAN 100 UNIT/1 ML 3ML VIAL SQ SCH ×7 (08:10→21:00)
[2017-10-06] MEDS: ASPIRIN 81 MG ENTERIC COATED PO SCH (08:10)
[2017-10-06] MEDS: PANTOPRAZOLE SOD 40 MG TABEC PO SCH (08:10)
[2017-10-06] MEDS: ONDANSETRON HCL INJ 2 MG/ML VIAL IV PRN (10:57)
[2017-10-06] MEDS: ACETAMINOPHEN 325 MG TAB PO PRN ×3 (10:57→19:58)
[2017-10-06] MEDS: CLINDAMYCIN PHOS 900MG/ D5W 50 50 ML IV SCH ×2 (14:11→20:47)
[2017-10-06 16:00] VITALS: BP 137/79
[2017-10-06] MEDS: ATORVASTATIN 10 MG TAB PO SCH (19:58)
[2017-10-06 20:00] VITALS: BP 124/70
[2017-10-07] VITALS: BP 141/77
[2017-10-07] MEDS: ACETAMINOPHEN 325 MG TAB PO PRN ×2 (01:20→05:23)
[2017-10-07 04:00] VITALS: BP 165/78
--- NOTE | 2017-10-07 04:00 | Progress Note ---
DATE: October 06, 2017 CARDIOLOGY PROGRESS NOTE SUBJECTIVE: Patient denies chest pain or shortness of breath. She complains of having nausea and vomiting all night. OBJECTIVE: VITAL SIGNS: Temperature 96.6 degrees, pulse 105, respiratory rate 19, blood pressure 180/100, oxygen saturation 98% on room air. GENERAL: Awake, alert, in no acute distress. LUNGS: Clear to auscultation bilaterally. No wheezes or crackles. CARDIOVASCULAR: Normal rate, regular rhythm. No murmur. Normal S1 and S2. ABDOMEN: Soft, nontender. EXTREMITIES: Right lower extremity dressing is noted. CARDIAC MEDICATIONS: 1. Atorvastatin 10 mg p.o. nightly. 2. Aspirin 81 mg p.o. daily. LABS: Cholesterol 176, LDL 120, HDL 43, triglycerides 66. IMPRESSION: 1. Peripheral arterial disease, predominantly infrapopliteal with what appears to be single-vessel runoff via the posterior tibial arteries bilaterally. 2. Right lower extremity cellulitis, status post I and D. 3. Diabetes mellitus. 4. Hypertension. 5. Asthma. RECOMMENDATIONS: Continue current cardiac medications. Monitor wound for healing. If wound fails to heal, we will need to proceed with peripheral angiogram. We will discuss with podiatry. Thank you for this consult. We will continue to follow. Job#: [id number]
[2017-10-07] MEDS: CLINDAMYCIN PHOS 900MG/ D5W 50 50 ML IV SCH ×3 (05:23→20:33)
[2017-10-07] MEDS: TRAMADOL HCL 50 MG TAB PO PRN ×4 (05:54→20:33)
[2017-10-07 08:00] VITALS: BP 164/78
[2017-10-07] MEDS: INSULIN REGULAR, HUMAN 100 UNIT/1 ML 3ML VIAL SQ SCH ×7 (08:26→20:33)
[2017-10-07] MEDS: PANTOPRAZOLE SOD 40 MG TABEC PO SCH (08:26)
[2017-10-07] MEDS: ASPIRIN 81 MG ENTERIC COATED PO SCH (08:27)
[2017-10-07] MEDS: ONDANSETRON HCL INJ 2 MG/ML VIAL IV PRN ×2 (09:45→20:58)
[2017-10-07 12:00] VITALS: BP 179/84
--- NOTE | 2017-10-07 15:02 | Progress Note ---
DATE: October 07, 2017 FOLLOWUP PROGRESS NOTE The patient is 5 days status post I and D of the right foot for a diabetic foot wound, abscess and cellulitis with severe PAD. At this point, she states the pain is a little less. There is still redness, swelling and edema to the right foot. The wound base is necrotic and packed open with Iodoform gauze. The wound has no bleeding and nonpalpable pulses. Thus far, is showing no signs of healing. Vascular evaluation and CTA with runoff shows the right foot to have atherosclerotic changes distally with collateralization. However, below the knee the posterior tibial artery is patent to the ankle with mid to distal fibular arteries occluded. Distal anterior tibial is occluded as well. There appears to be 1 vessel runoff with advanced small vessel disease below the knee. I am unsure of her ability to heal with the current vascular status, but also unsure if Dr. Gilman feels he will be able to accomplish anything in opening these closed arteries. I recommend further evaluation by Dr. Gilman, and proceed with revascularization if possible. Otherwise, a trial of local wound care on home IV antibiotics may be our only other option. If so, I will gladly follow her on an outpatient basis. Will discuss with vascular and proceed with recommended line of therapy. Job#: [id number] MARIBEL
[2017-10-07 16:00] VITALS: BP 185/86
[2017-10-07] MEDS: CLONIDINE HCL 0.1 MG TAB PO PRN (16:36)
[2017-10-07 20:00] VITALS: BP 166/78
--- NOTE | 2017-10-07 20:18 | Progress Note ---
DATE: October 07, 2017 CARDIOLOGY PROGRESS NOTE SUBJECTIVE: Patient denies chest pain or shortness of breath. OBJECTIVE VITAL SIGNS: Temperature 96.6 degrees, pulse 66, respiratory rate 19, blood pressure 179/84, oxygen saturation 98% on room air. GENERAL: Awake, alert, in no acute distress. LUNGS: Clear to auscultation bilaterally. No wheezes or crackles. CARDIOVASCULAR: Normal rate, regular rhythm. No murmur. Normal S1 and S2. ABDOMEN: Soft, nontender. EXTREMITIES: Right lower extremity dressing is noted. CARDIAC MEDICATIONS 1. Aspirin 81 mg p.o. daily. 2. Atorvastatin 10 mg p.o. nightly. LABS: None today. IMPRESSION 1. Peripheral arterial disease, predominantly infrapopliteal with what appears to be single-vessel runoff via the posterior tibial arteries bilaterally on CT. 2. Right lower extremity cellulitis, status post incision and drainage. 3. Diabetes mellitus. 4. Hypertension. 5. Asthma. RECOMMENDATIONS: Continue current cardiac medications. The patient's blood pressure is not well controlled. Start lisinopril. The patient has had poor healing of her wound. Plan to proceed with peripheral angiogram, likely to be done . IV antibiotics per primary service. Thank you for this consult. We will continue to follow. Job#: [id number] SUMIT
[2017-10-07] MEDS: ATORVASTATIN 10 MG TAB PO SCH (20:33)
[2017-10-08] MEDS: TRAMADOL HCL 50 MG TAB PO PRN ×2 (03:30→14:18)
[2017-10-08 04:00] VITALS: BP 167/77
[2017-10-08] MEDS: CLINDAMYCIN PHOS 900MG/ D5W 50 50 ML IV SCH ×3 (05:38→22:56)
[2017-10-08] MEDS: INSULIN REGULAR, HUMAN 100 UNIT/1 ML 3ML VIAL SQ SCH ×7 (07:30→21:00)
[2017-10-08] MEDS: PANTOPRAZOLE SOD 40 MG TABEC PO SCH (07:30)
[2017-10-08 08:00] VITALS: BP 167/77
[2017-10-08] MEDS: ASPIRIN 81 MG ENTERIC COATED PO SCH (09:00)
[2017-10-08 09:44] VITALS: BP 181/84
--- NOTE | 2017-10-08 10:43 | Progress Note ---
DATE: October 08, 2017 Patient is 6 days status post I and D with wound base that is unchanged. She is being packed open with Iodoform gauze. The wound base is necrotic. The foot is top steep tender with rubor. She has 1-vessel runoff according to CT. In phone consultation with Dr. Gilman, he will be performing arteriogram with attempted revascularization of her right lower extremity at 10:30. Patient has agreed to this, and should be okay for discharge after procedure with home health. Will use Bactroban and dry gauze to the wound after revascularization, IV or oral antibiotics as per Dr. Hoover's recommendation. Job#: [id number] MARIBEL
[2017-10-08] MEDS: ONDANSETRON HCL INJ 2 MG/ML VIAL IV PRN ×3 (10:46→22:00)
[2017-10-08] MEDS ORDERED: LISINOPRIL 10 MG TAB PO ONE (15:45)
--- NOTE | 2017-10-08 15:51 | Progress Note ---
DATE: October 08, 2017 CARDIOLOGY PROGRESS NOTE SUBJECTIVE: Patient denies chest pain or shortness of breath. She continues to complain of nausea. OBJECTIVE VITAL SIGNS: Temperature 97.3 degrees, pulse 73, respiratory rate 20, blood pressure 181/84, oxygen saturation 96% on room air. GENERAL: Awake, alert, in no acute distress. LUNGS: Clear to auscultation bilaterally. No wheezes or crackles. CARDIOVASCULAR: Normal rate, regular rhythm. No murmur. Normal S1 and S2. ABDOMEN: Soft, nontender. EXTREMITIES: Right lower extremity dressing is noted. CARDIAC MEDICATIONS 1. Aspirin 81 mg p.o. daily. 2. Atorvastatin 10 mg p.o. nightly. LABS: None today. IMPRESSION 1. Peripheral arterial disease, predominantly infrapopliteal with what appears to be single-vessel runoff via the posterior tibial arteries bilaterally on CT. 2. Right lower extremity cellulitis, status post incision and drainage. 3. Diabetes mellitus. 4. Hypertension. 5. Asthma. RECOMMENDATIONS: Continue current cardiac medications. Start lisinopril as the patient's blood pressure remains quite elevated. The patient's wound has not healed well post I and D. Peripheral angiogram to be done tomorrow by Dr. Gilman. The risks and benefits of the procedure were discussed, and the patient agrees to proceed. N.P.O. after midnight. IV antibiotics per primary service. Thank you for this consult. We will continue to follow. Job#: [id number]
[2017-10-08 17:46] VITALS: BP 176/88
[2017-10-08 20:00] VITALS: BP 155/72
[2017-10-08 21:08] VITALS: BP 155/72
[2017-10-08] MEDS: ATORVASTATIN 10 MG TAB PO SCH (21:54)
[2017-10-09] VITALS (9 sets, daily range): BP systolic 98–164; BP diastolic 53–84
[2017-10-09] MEDS: CLINDAMYCIN PHOS 900MG/ D5W 50 50 ML IV SCH ×2 (06:25→14:15)
[2017-10-09] MEDS: INSULIN REGULAR, HUMAN 100 UNIT/1 ML 3ML VIAL SQ SCH ×6 (07:30→16:30)
[2017-10-09] MEDS: PANTOPRAZOLE SOD 40 MG TABEC PO SCH (07:30)
[2017-10-09] MEDS: ASPIRIN 81 MG ENTERIC COATED PO SCH ×2 (09:00→15:00)
[2017-10-09] MEDS ORDERED: LISINOPRIL 10 MG TAB PO SCH ×2 (09:00→17:00)
[2017-10-09] MEDS ORDERED: HEPARIN SOD/SOD CHLORIDE 2,000 ML ONE (11:54)
[2017-10-09] MEDS ORDERED: LIDOCAINE HCL 2% LOCAL 20 ML VIAL ONE (11:54)
[2017-10-09] MEDS ORDERED: IOPAMIDOL 300MG/ML 100 ML INFUS..BTL IV ONE (11:54)
[2017-10-09] MEDS ORDERED: FENTANYL CITRATE/PF 100MCG/2 ML INJ ONE ×2 (12:07→13:46)
[2017-10-09] MEDS ORDERED: MIDAZOLAM HCL 2 MG/2 ML VIAL ONE ×3 (12:08→13:47)
[2017-10-09] MEDS ORDERED: NITROGLYCERIN/D5W 200 MCG/ML 250 ML ONE (12:08)
[2017-10-09] MEDS ORDERED: HEPARIN SOD (PORCINE) 1000 UNIT/ML 30ML ONE (12:08)
[2017-10-09] MEDS ORDERED: SODIUM CHLORIDE 0.9% 1000ML 1,000 ML ONE ×2 (12:08→13:09)
[2017-10-09] MEDS ORDERED: VERAPAMIL HCL 2.5 MG/ML 2 ML VIAL ONE (13:12)
[2017-10-09] MEDS ORDERED: FENTANYL CITRATE/PF 100MCG/2 ML INJ IV PRN (13:15)
--- NOTE | 2017-10-09 13:20 | Progress Note ---
DATE: October 09, 2017 CARDIOLOGY PROGRESS NOTE SUBJECTIVE: The patient denies chest pain or shortness of breath. She is n.p.o. for peripheral angiogram today. OBJECTIVE VITAL SIGNS: Temperature 97.3 degrees, pulse 78, respiratory rate 18, blood pressure 163/77, and oxygen saturation 98% on room air. GENERAL: Awake and alert, in no acute distress. LUNGS: Clear to auscultation bilaterally. No wheezes or crackles. CARDIOVASCULAR: Normal rate, regular rhythm. No murmur. Normal S1 and S2. ABDOMEN: Soft and nontender. EXTREMITIES: Right lower extremity dressing is present. No edema. CARDIAC MEDICATIONS 1. Lisinopril 10 mg p.o. daily. 2. Atorvastatin 10 mg p.o. at bedtime. 3. Aspirin 81 mg p.o. daily. LABS: None today. IMPRESSION 1. Peripheral arterial disease, predominantly infrapopliteal with what appears to be single-vessel runoff via the posterior tibial arteries bilaterally on CT. 2. Right lower extremity cellulitis, status post incision and drainage. 3. Diabetes mellitus. 4. Hypertension. 5. Asthma. RECOMMENDATIONS: Continue current cardiac medications. If patient's blood pressure remains elevated, we will increase lisinopril. Due to poor healing of the right lower extremity wound, patient will be going for peripheral angiogram today. Further recommendations following pending angiogram results. IV antibiotics per primary service. Thank you for this consult. We will continue to follow. Job#: [id number] VAS
[2017-10-09] MEDS ORDERED: ASPIRIN 325 MG TAB ONE (13:30)
[2017-10-09] MEDS ORDERED: PRASUGREL 10 MG TAB ONE (13:30)
[2017-10-09] MEDS ORDERED: SODIUM CHLORIDE 0.9% 1000ML 1,000 ML IV ONE (14:30)
--- NOTE | 2017-10-09 15:27 | Operative Report ---
DATE OF PROCEDURE: October 09, 2017 INDICATIONS: Peripheral arterial disease with ulceration and critical limb ischemia of the right lower extremity. PROCEDURES PERFORMED 1. Abdominal aortogram. 2. Bilateral lower extremity angiograms. 3. Selective placement of catheter from the left femoral artery to the right superficial femoral artery. 4. Additional 3rd-order catheter placement from the left femoral artery to the right posterior tibial artery. 5. Atherectomy and drug-coated balloon angioplasty of the right popliteal artery. 6. Atherectomy and stent placement of the right posterior tibial artery. 7. Deployment of left groin Perclose. COMPLICATIONS: None. BLOOD LOSS: 10 mL. RECOMMENDATIONS: Dual antiplatelet therapy for at least 6 months. Access was obtained in the left femoral artery. A 6-Australian sheath was placed. Abdominal aortogram demonstrated minimal disease in the abdominal aorta and iliacs bilaterally. Proximal right femoral artery was widely patent. The left femoral artery had less than 50% stenosis. The catheter was then advanced from the left femoral artery to the right superficial femoral artery confirming distal right popliteal artery 80% stenosis. Infrapopliteal vessels could not be visualized. The catheter was advanced in the left femoral artery to the right posterior tibial artery (additional 3rd-order catheter placement). Complete occlusion of the peroneal and posterior tibial arteries was noted without reconstitution. The posterior tibial artery had high-grade stenosis/subtotal occlusion in its mid portion with reconstitution and single-vessel runoff to the right foot. A decision was made to intervene on the right posterior tibial artery and popliteal artery. The patient received 9500 units of intra-arterial heparin and oral Effient for anticoagulation. The sheath was exchanged to a 6-Australian, 45-cm sheath advanced from the left femoral artery to the right superficial femoral artery. The lesion was crossed using a Glidewire. The wire was exchanged to a ViperWire. Orbital atherectomy of the distal right popliteal as well as right posterior tibial arteries performed. Large amounts of visible thrombus for which manual aspiration and secondary thrombectomy were required of the right popliteal artery. Balloon angioplasty of the right posterior tibial artery with a 4-mm balloon. Balloon angioplasty of right popliteal artery with a 4-mm drug-coated balloon. There was residual stenosis in the popliteal artery for which a single 3 x 28 mm Synergy drug-eluting stent was deployed at 14 atmospheres. Excellent end result, single-vessel runoff, incomplete plantar arch. Left groin Perclose was applied. Patient transferred to the floor in stable condition. Job#: [id number]
[2017-10-09] MEDS ORDERED: GLIMEPIRIDE2 MG PO (16:45)
[2017-10-09] MEDS ORDERED: LIPITOR20 MG PO (16:45)
[2017-10-09] MEDS ORDERED: CLEOCIN HCL150 MG PO (16:46)
[2017-10-09] MEDS ORDERED: ULTRAM50 MG PO (16:46)
[2017-10-09] MEDS ORDERED: LISINOPRIL10 MG PO (16:47)
[2017-10-09] MEDS ORDERED: CLOPIDOGREL BISULFATE 75 MG TAB PO SCH (17:00)
== END 2017-10-09 19:29 | disposition home health service (06) | DRG 629 ==
LOC: ER 12:49 → ERHOLD 19:23 → EDBEDREQ 19:33 → EDBEDREQTM 19:33 → MED/SURG2 20:55
PROVIDERS: ADMIT Internal Medicine; ATTEND Internal Medicine
PROC: 0J9Q0ZX Drainage of Right Foot Subcutaneous Tissue and Fascia, Open Approach, Diagnostic (ICD-10-PCS; principal; 2017-10-01 14:30)
PROC: 04CM3ZZ Extirpation of Matter from Right Popliteal Artery, Percutaneous Approach (ICD-10-PCS; 2017-10-09)
PROC: 047M3Z1 Dilation of Right Popliteal Artery using Drug-Coated Balloon, Percutaneous Approach (ICD-10-PCS; 2017-10-09)
PROC: 047R341 Dilation of Right Posterior Tibial Artery with Drug-eluting Intraluminal Device, using Drug-Coated Balloon, Percutaneous Approach (ICD-10-PCS; 2017-10-09)
PROC: B41D1ZZ Fluoroscopy of Aorta and Bilateral Lower Extremity Arteries using Low Osmolar Contrast (ICD-10-PCS; 2017-10-09)
PROC: 04CR3ZZ Extirpation of Matter from Right Posterior Tibial Artery, Percutaneous Approach (ICD-10-PCS; 2017-10-09)
DX: E11.628 Type 2 diabetes mellitus with other skin complications (principal); L02.611 Cutaneous abscess of right foot; L97.519 Non-pressure chronic ulcer of other part of right foot with unspecified severity; L03.115 Cellulitis of right lower limb; I70.92 Chronic total occlusion of artery of the extremities; E11.65 Type 2 diabetes mellitus with hyperglycemia; I70.235 Atherosclerosis of native arteries of right leg with ulceration of other part of foot; I10 Essential (primary) hypertension; K21.9 Gastro-esophageal reflux disease without esophagitis; J45.909 Unspecified asthma, uncomplicated; Z88.0 Allergy status to penicillin; Z87.891 Personal history of nicotine dependence; Z28.21 Immunization not carried out because of patient refusal; Z79.84 Long term (current) use of oral hypoglycemic drugs
CPT/HCPCS: 36140; 36415; 75625; 75635; 77002; 80048; 80053; 80061; 81001; 82948; 85025; 87071; 87075; 87086; 87186; 87205; 92924; 93925; 96372; 99284; C1769; J1170; J1644; J2001; J2250; J2405; J2710; J2765; J7030; J7040; J7050; Q9967

== ENCOUNTER → 2020-07-25 | Day surgery (SDC) | payer OTHER ==
[2020-07-21 09:32] LABS: BASOPHILS % 0.5 % (0.0-1.0); EOSINOPHILS # (AUTO) 0.2 (0.0-0.4); EOSINOPHILS % 2.9 % (0.0-6.0); HEMATOCRIT 31.5 % (34.2-44.1); LYMPHOCYTES # (AUTO) 1.8 (1.0-3.2); LYMPHOCYTES % 21.1 % (18.0-39.1); MEAN CORPUSCULAR HEMOGLOBIN 27.2 pg (28-32); MEAN CORPUSCULAR HGB CONC 31.7 g/dL (31-35); MEAN CORPUSCULAR VOLUME 85.6 fL (81-99); MONOCYTES # (AUTO) 0.7 (0.2-0.8); MONOCYTES % 8.1 % (4.4-11.3); NEUTROPHILS # (AUTO) 5.7 (2.1-6.9); NEUTROPHILS % 67.2 % (38.7-80.0); PLATELET COUNT 320 x10e3/uL (140-360); RED BLOOD COUNT 3.68 x10e6/uL (3.6-5.1); RED CELL DISTRIBUTION WIDTH 13.1 % (11.7-14.4)
[~2020-07-25] MED LIST: AMLODIPINE BESY10 MG PO; CLEOCIN HCL150 MG PO; CRESTOR10 MG PO; FENTANYL CITRATE/PF 100MCG/2 ML INJ ONE; FUROSEMIDE40 MG PO; GLIMEPIRIDE2 MG PO; GLIPIZIDE5 MG PO; HYDRALAZINE HCL25 MG PO; LANTUS 3ML100 UNITS/ SQ; LIPITOR20 MG PO; LISINOPRIL10 MG PO; METFORMIN HCL500 MG PO; METFORMIN HCL850 MG PO; METOPROLOL SUCC25 MG PO; MIDAZOLAM HCL 2 MG/2 ML VIAL ONE; NEXIUM40 MG PO; ONDANSETRON HCL INJ 2MG/ML 2ML 2 MG/ML VIAL ONE; OR PHACO EYE KIT ONE; PREOP PHACO EYE KIT ONE; PROVENTIL HFA6.7 GM IH; TRADJENTA5 MG PO; ULTRAM50 MG PO
[2020-07-25 13:15] VITALS: BP 161/74
== END | disposition home or self-care (01) ==
LOC: OR 10:02
PROVIDERS: ATTEND Ophthalmology
DX: H25.11 Age-related nuclear cataract, right eye (principal); R00.2 Palpitations; R01.1 Cardiac murmur, unspecified; E11.40 Type 2 diabetes mellitus with diabetic neuropathy, unspecified; R94.31 Abnormal electrocardiogram [ECG] [EKG]; M47.9 Spondylosis, unspecified; J45.909 Unspecified asthma, uncomplicated; I10 Essential (primary) hypertension; Z88.0 Allergy status to penicillin; Z01.812 Encounter for preprocedural laboratory examination; Z20.828 Contact with and (suspected) exposure to other viral communicable diseases; Z79.4 Long term (current) use of insulin; Z68.31 Body mass index [BMI] 31.0-31.9, adult
CPT/HCPCS: 36415 ×2; 66984; 82948; 85025; J2250; J2405; J3010; U0002; V2632

== ENCOUNTER 2021-01-03 13:02 | Emergency (ER) | payer BC, OTHER ==
[~2021-01-03] VITALS: Ht 160 cm; Wt 71.2 kg
[~2021-01-03 13:02] MED LIST changes: -FENTANYL CITRATE/PF 100MCG/2 ML INJ ONE; -MIDAZOLAM HCL 2 MG/2 ML VIAL ONE; -ONDANSETRON HCL INJ 2MG/ML 2ML 2 MG/ML VIAL ONE; -OR PHACO EYE KIT ONE; -PREOP PHACO EYE KIT ONE
[2021-01-03] MEDS ORDERED: SODIUM CHLORIDE 0.9% 1000ML 1,000 ML IV STA (13:07)
[2021-01-03] MEDS ORDERED: DICYCLOMINE HCL 20 MG/2 ML VIAL IM ONE (13:15)
[2021-01-03] MEDS ORDERED: ONDANSETRON HCL INJ 2MG/ML 2ML 2 MG/ML VIAL IV PRN (13:15)
[2021-01-03 13:26] LABS: BASOPHILS % 0.5 % (0.0-1.0); EOSINOPHILS # (AUTO) 0.2 (0.0-0.4); EOSINOPHILS % 1.9 % (0.0-6.0); LYMPHOCYTES # (AUTO) 1.8 (1.0-3.2); LYMPHOCYTES % 21.8 % (18.0-39.1); MEAN CORPUSCULAR HEMOGLOBIN 26.4 pg (28-32); MONOCYTES # (AUTO) 0.6 (0.2-0.8); MONOCYTES % 7.1 % (4.4-11.3); NEUTROPHILS # (AUTO) 5.5 (2.1-6.9); NEUTROPHILS % 68.3 % (38.7-80.0); PLATELET COUNT 398 x10e3/uL (140-360); RED BLOOD COUNT 3.41 x10e6/uL (3.6-5.1); RED CELL DISTRIBUTION WIDTH 14.5 % (11.7-14.4)
[2021-01-03 13:48] LABS: ALANINE AMINOTRANSFERASE 23 IU/L (0-55); ALBUMIN 3.3 g/dL (3.5-5.0); ALKALINE PHOSPHATASE 95 IU/L (40-150); ANION GAP 15.1 mmol/L (8-16); BLOOD UREA NITROGEN 9 mg/dL (7-26); BUN/CREATININE RATIO 13 (6-25); CALCIUM 8.9 mg/dL (8.4-10.2); CARBON DIOXIDE 18 mmol/L (22-29); CHLORIDE 108 mmol/L (98-107); CREATININE, SERUM 0.71 mg/dL (0.57-1.11); EST GLOMERULAR FILTRATION RATE > 60 ML/MIN (60-); GLUCOSE 149 mg/dL (74-118); LIPASE 19 U/L (8-78); POTASSIUM 3.1 mmol/L (3.5-5.1); SODIUM 138 mmol/L (136-145)
[2021-01-03] MEDS ORDERED: IOPAMIDOL 370 MG/ML 200 ML INFUS..BTL INJ ONE (14:01)
[2021-01-03] MEDS ORDERED: SODIUM CHLORIDE 0.9% 50ML 50 ML ONE (14:01)
[2021-01-03 14:16] LABS: CLARITY,URINE HAZY (CLEAR); COLOR,URINE YELLOW (YELLOW); KETONES,URINE TRACE (NEGATIVE); LEUKOCYTE ESTERASE ,URINE TRACE (NEGATIVE); NITRITE,URINE NEGATIVE (NEGATIVE); PROTEIN,URINE DIPSTICK 1+ (NEGATIVE); URINE UROBILINOGEN 0.2 mg/dL (0.2 - 1)
[2021-01-03 14:28] LABS: BACTERIA,URINE MANY /HPF; EPITHELIAL CELLS,URINE RARE /LPF
[2021-01-03] MEDS ORDERED: HYDROCODON-ACE1 EA12 PO (14:56)
[2021-01-03] MEDS ORDERED: ONDANSETRON ODT4 MG PO (14:56)
[2021-01-03 14:58] VITALS: BP 141/64
[2021-01-03] MEDS ORDERED: CEPHALEXIN500 MG PO (15:00)
[2021-01-03] MEDS ORDERED: HYDROCODON-ACE1 EA11 PO (15:05)
== END 2021-01-03 15:14 | disposition home or self-care (01) ==
LOC: ER 13:06
DX: R10.33 Periumbilical pain (principal); R11.0 Nausea; R19.7 Diarrhea, unspecified; N39.0 Urinary tract infection, site not specified; K86.9 Disease of pancreas, unspecified; E11.65 Type 2 diabetes mellitus with hyperglycemia; I10 Essential (primary) hypertension; Z86.718 Personal history of other venous thrombosis and embolism
CPT/HCPCS: 36415; 74177; 80053; 81001; 83690; 84484; 85025; 93005; 99284; J0500; J2405; J7030; Q9967

== ENCOUNTER → 2021-01-22 | Outpatient (CLI) | payer BC ==
[~2021-01-22] MED LIST changes: +CEPHALEXIN500 MG PO; +GADOBENATE DIMEGLUMINE 1 ML IV ONE; +HYDROCODON-ACE1 EA11 PO; +HYDROCODON-ACE1 EA12 PO; +ONDANSETRON ODT4 MG PO; +SODIUM CHLORIDE 0.9% 50ML 50 ML ONE
== END ==
LOC: MRI 09:48
PROVIDERS: ATTEND Internal Medicine Gastroenterology
DX: K86.9 Disease of pancreas, unspecified (principal); R19.09 Other intra-abdominal and pelvic swelling, mass and lump; E11.9 Type 2 diabetes mellitus without complications; Z71.3 Dietary counseling and surveillance; I10 Essential (primary) hypertension; E66.3 Overweight; Z87.891 Personal history of nicotine dependence
CPT/HCPCS: 74183

== ENCOUNTER 2021-02-01 16:39 | Inpatient (IN) | payer BC ==
[~2021-02-01] VITALS: Ht 160 cm; Wt 66.4 kg
[~2021-02-01 16:39] MED LIST changes: -GADOBENATE DIMEGLUMINE 1 ML IV ONE; -SODIUM CHLORIDE 0.9% 50ML 50 ML ONE
[2021-02-01] MEDS ORDERED: ACETAMINOPHEN 325 MG TAB PO ONE (17:15)
[2021-02-01] MEDS ORDERED: SODIUM CHLORIDE 0.9% 1000ML 1,000 ML IV ONE ×2 (17:15)
[2021-02-01] MEDS ORDERED: SODIUM CHLORIDE 0.9% 500ML 500 ML IV ONE (17:15)
[2021-02-01] MEDS ORDERED: ONDANSETRON HCL INJ 2MG/ML 2ML 2 MG/ML VIAL IV STA (17:15)
[2021-02-01 17:26] LABS: BASOPHILS % 0.4 % (0.0-1.0); HEMATOCRIT 29.3 % (34.2-44.1); HEMOGLOBIN 8.9 g/dL (12.0-16.0); LYMPHOCYTES # (AUTO) 0.4 (1.0-3.2); LYMPHOCYTES % 5.8 % (18.0-39.1); MEAN CORPUSCULAR HEMOGLOBIN 24.7 pg (28-32); MEAN CORPUSCULAR HGB CONC 30.4 g/dL (31-35); MEAN CORPUSCULAR VOLUME 81.2 fL (81-99); MONOCYTES # (AUTO) 0.4 (0.2-0.8); MONOCYTES % 4.8 % (4.4-11.3); NEUTROPHILS # (AUTO) 6.7 (2.1-6.9); NEUTROPHILS % 88.5 % (38.7-80.0); PLATELET COUNT 412 x10e3/uL (140-360); RED BLOOD COUNT 3.61 x10e6/uL (3.6-5.1); RED CELL DISTRIBUTION WIDTH 15.1 % (11.7-14.4)
[2021-02-01 17:42] LABS: ALBUMIN 3.1 g/dL (3.5-5.0); ALBUMIN/GLOBULIN RATIO 0.8 (0.8-2.0); ANION GAP 18.4 mmol/L (8-16); CALCIUM 8.7 mg/dL (8.4-10.2); CREATININE, SERUM 0.83 mg/dL (0.57-1.11)
[2021-02-01 17:43] LABS: AMYLASE 25 U/L (25-125); LIPASE 14 U/L (8-78); POTASSIUM 2.4 mmol/L (3.5-5.1)
[2021-02-01] MEDS ORDERED: POTASSIUM CHLORIDE 20MEQ/100ML 100 ML IV ONE ×2 (17:45→20:00)
[2021-02-01] MEDS ORDERED: CEFEPIME 1 GM in SODIUM CHLORIDE 0.9% 50ML 50 ML IV ONE (17:45)
[2021-02-01] MEDS ORDERED: SODIUM CHLORIDE 0.9% 50ML 50 ML ONE (18:47)
[2021-02-01] MEDS ORDERED: IOPAMIDOL 370 MG/ML 200 ML INFUS..BTL INJ ONE (18:47)
[2021-02-01 21:00] VITALS: BP 127/58
[2021-02-01 21:15] LABS: CLARITY,URINE SL CLOUDY (CLEAR); COLOR,URINE AMBER (YELLOW); KETONES,URINE 2+ (NEGATIVE); LEUKOCYTE ESTERASE ,URINE NEGATIVE (NEGATIVE); NITRITE,URINE NEGATIVE (NEGATIVE); PROTEIN,URINE DIPSTICK 2+ (NEGATIVE); URINE UROBILINOGEN 0.2 mg/dL (0.2 - 1)
[2021-02-01 21:29] LABS: BACTERIA,URINE MODERATE /HPF; EPITHELIAL CELLS,URINE MODERATE /LPF
[2021-02-01] MEDS: SODIUM CHLORIDE 0.9% 1000ML 1,000 ML IV SCH (21:45)
[2021-02-01] MEDS ORDERED: DEXTROSE 50% SYRINGE 50 ML IV PRN (21:45)
[2021-02-01] MEDS ORDERED: ACETAMINOPHEN 325 MG TAB PO PRN (21:45)
[2021-02-01 23:00] VITALS: BP 127/58
[2021-02-02] VITALS (7 sets, daily range): BP systolic 118–126; BP diastolic 55–75
[2021-02-02] MEDS ORDERED: POTASSIUM CHLORIDE 20MEQ/100ML 100 ML IV ONE (03:15)
[2021-02-02] MEDS ORDERED: VITAMIN D250 MCG (03:39)
[2021-02-02] MEDS ORDERED: LISINOPRIL40 MG PO (03:39)
[2021-02-02] MEDS ORDERED: MONTELUKAST SOD10 MG PO (03:39)
[2021-02-02] MEDS ORDERED: IRON18 MG PO (03:39)
[2021-02-02] MEDS ORDERED: NAPROXEN500 M1 PO (03:39)
[2021-02-02] MEDS ORDERED: JARDIANCE10 MG PO (03:39)
[2021-02-02] MEDS: METRONIDAZOLE 500MG/NS 100ML 100 ML IV SCH ×4 (05:32→18:50)
[2021-02-02] MEDS: CEFEPIME 1 GM in SODIUM CHLORIDE 0.9% 50ML 50 ML IV SCH ×3 (05:32→21:40)
[2021-02-02] MEDS: SODIUM CHLORIDE 0.9% 1000ML 1,000 ML IV SCH ×3 (05:45→21:45)
[2021-02-02 05:49] LABS: BASOPHILS % 0.2 % (0.0-1.0); EOSINOPHILS % 0.2 % (0.0-6.0); HEMATOCRIT 26.3 % (34.2-44.1); HEMOGLOBIN 7.8 g/dL (12.0-16.0); LYMPHOCYTES # (AUTO) 1.8 (1.0-3.2); LYMPHOCYTES % 13.7 % (18.0-39.1); MEAN CORPUSCULAR HEMOGLOBIN 24.8 pg (28-32); MEAN CORPUSCULAR HGB CONC 29.7 g/dL (31-35); MEAN CORPUSCULAR VOLUME 83.8 fL (81-99); MONOCYTES # (AUTO) 0.9 (0.2-0.8); MONOCYTES % 6.8 % (4.4-11.3); NEUTROPHILS # (AUTO) 10.3 (2.1-6.9); NEUTROPHILS % 78.9 % (38.7-80.0); PLATELET COUNT 337 x10e3/uL (140-360); RED BLOOD COUNT 3.14 x10e6/uL (3.6-5.1); RED CELL DISTRIBUTION WIDTH 15.3 % (11.7-14.4)
[2021-02-02 06:09] LABS: ALBUMIN 2.4 g/dL (3.5-5.0); ALBUMIN/GLOBULIN RATIO 0.8 (0.8-2.0); ANION GAP 13.3 mmol/L (8-16); CALCIUM 7.6 mg/dL (8.4-10.2); CREATININE, SERUM 0.69 mg/dL (0.57-1.11)
[2021-02-02 06:35] LABS: POTASSIUM 2.3 mmol/L (3.5-5.1)
[2021-02-02] MEDS: INSULIN REGULAR, HUMAN 100 UNIT/1 ML SQ SCH ×4 (07:30→21:00)
[2021-02-02] MEDS: ONDANSETRON HCL INJ 2MG/ML 2ML 2 MG/ML VIAL IV PRN ×2 (08:45→12:50)
[2021-02-02] MEDS: MORPHINE SULFATE INJ 4 MG/ML INJ 1ML IV PRN ×2 (08:45→16:05)
[2021-02-02 10:59] LABS: ANISOCYTOSIS SLIGHT; BAND NEUTROPHILS % (MANUAL) 2 %; HYPOCHROMASIA SLIGHT; LYMPHOCYTES % (MANUAL) 14 % (19-48); MONOCYTES % (MANUAL) 12 % (3.4-9.0); NEUTROPHILS % (MANUAL) 72 % (40-74); PLATELET ESTIMATE ADEQUATE; PLATELET MORPHOLOGY COMMENT NORMAL; RBC MORPHOLOGY COMMENT NORMAL
[2021-02-02] MEDS: POTASSIUM CHLORIDE 20 MEQ TAB CR PO PRN (13:35)
[2021-02-02] MEDS ORDERED: POTASSIUM CHLORIDE 20MEQ/100ML 300 ML IV ONE (14:00)
[2021-02-02] MEDS ORDERED: SPIRONOLACTONE 25 MG TAB PO ONE (14:30)
[2021-02-02] MEDS ORDERED: DEXAMETHASONE PHOS 10MG INJ 20 MG in SODIUM CHLORIDE 0.9% 50ML 50 ML IV ONE (16:00)
[2021-02-02] MEDS ORDERED: FAMOTIDINE INJ 20 MG in SODIUM CHLORIDE 0.9% 50ML 50 ML IV ONE (16:30)
[2021-02-02] MEDS ORDERED: DIPHENHYDRAMINE HCL INJ 25 MG in SODIUM CHLORIDE 0.9% 50ML 50 ML IV ONE (17:00)
[2021-02-02] MEDS ORDERED: IRON DEXTRAN INJ 50 MG in SODIUM CHLORIDE 0.9% 100 ML IV ONE (17:30)
[2021-02-02] MEDS ORDERED: IRON DEXTRAN INJ 500 MG in SODIUM CHLORIDE 0.9% 500ML 500 ML IV PRN (18:30)
[2021-02-02 19:13] LABS: BASOPHILS % 0.3 % (0.0-1.0); EOSINOPHILS % 0.2 % (0.0-6.0); HEMATOCRIT 30.3 % (34.2-44.1); HEMOGLOBIN 8.9 g/dL (12.0-16.0); LYMPHOCYTES # (AUTO) 0.6 (1.0-3.2); LYMPHOCYTES % 4.6 % (18.0-39.1); MEAN CORPUSCULAR HEMOGLOBIN 24.6 pg (28-32); MEAN CORPUSCULAR HGB CONC 29.4 g/dL (31-35); MEAN CORPUSCULAR VOLUME 83.7 fL (81-99); MONOCYTES # (AUTO) 0.1 (0.2-0.8); MONOCYTES % 0.8 % (4.4-11.3); NEUTROPHILS # (AUTO) 11.1 (2.1-6.9); NEUTROPHILS % 93.6 % (38.7-80.0); PLATELET COUNT 363 x10e3/uL (140-360); RED BLOOD COUNT 3.62 x10e6/uL (3.6-5.1); RED CELL DISTRIBUTION WIDTH 15.2 % (11.7-14.4)
[2021-02-02 19:42] LABS: HYPOCHROMASIA SLIGHT; POIKILOCYTOSIS SLIGHT
[2021-02-02 19:43] LABS: PLATELET ESTIMATE ADEQUATE; PLATELET MORPHOLOGY COMMENT NORMAL; RBC MORPHOLOGY COMMENT ABNORMAL
[2021-02-03] VITALS (8 sets, daily range): BP systolic 137–162; BP diastolic 66–76
[2021-02-03] MEDS: ONDANSETRON HCL INJ 2MG/ML 2ML 2 MG/ML VIAL IV PRN ×3 (01:53→17:14)
[2021-02-03] MEDS: METRONIDAZOLE 500MG/NS 100ML 100 ML IV SCH ×5 (05:05→23:24)
[2021-02-03] MEDS: SODIUM CHLORIDE 0.9% 1000ML 1,000 ML IV SCH ×4 (05:45→23:34)
[2021-02-03] MEDS: MORPHINE SULFATE INJ 4 MG/ML INJ 1ML IV PRN ×2 (08:00→21:09)
[2021-02-03] MEDS: INSULIN REGULAR, HUMAN 100 UNIT/1 ML SQ SCH ×4 (09:06→21:00)
[2021-02-03 11:25] LABS: ANION GAP 18.2 mmol/L (8-16); CALCIUM 8.2 mg/dL (8.4-10.2); CREATININE, SERUM 0.79 mg/dL (0.57-1.11); POTASSIUM 3.2 mmol/L (3.5-5.1)
[2021-02-03] MEDS: METOCLOPRAMIDE HCL 10 MG/2ML VIAL IV SCH ×3 (12:20→21:09)
[2021-02-03] MEDS: POTASSIUM CHLORIDE 20 MEQ TAB CR PO PRN (12:36)
[2021-02-03] MEDS: PROMETHAZINE HCL 25 MG TAB PO PRN (14:17)
[2021-02-04] VITALS (7 sets, daily range): BP systolic 137–168; BP diastolic 69–76
[2021-02-04] MEDS: METOCLOPRAMIDE HCL 10 MG/2ML VIAL IV SCH ×3 (05:32→21:40)
[2021-02-04] MEDS: METRONIDAZOLE 500MG/NS 100ML 100 ML IV SCH ×4 (05:32→23:46)
[2021-02-04] MEDS: SODIUM CHLORIDE 0.9% 1000ML 1,000 ML IV SCH (05:51)
[2021-02-04] MEDS: INSULIN REGULAR, HUMAN 100 UNIT/1 ML SQ SCH ×4 (07:30→21:42)
[2021-02-04] MEDS: POTASSIUM CHLORIDE 20 MEQ TAB CR PO PRN (09:02)
[2021-02-04 09:48] LABS: BASOPHILS % 0.1 % (0.0-1.0); EOSINOPHILS % 0.1 % (0.0-6.0); HEMATOCRIT 32.9 % (34.2-44.1); HEMOGLOBIN 9.6 g/dL (12.0-16.0); LYMPHOCYTES # (AUTO) 1.8 (1.0-3.2); LYMPHOCYTES % 13.1 % (18.0-39.1); MEAN CORPUSCULAR HEMOGLOBIN 24.9 pg (28-32); MEAN CORPUSCULAR HGB CONC 29.2 g/dL (31-35); MEAN CORPUSCULAR VOLUME 85.2 fL (81-99); MONOCYTES # (AUTO) 0.8 (0.2-0.8); MONOCYTES % 5.7 % (4.4-11.3); NEUTROPHILS # (AUTO) 11.1 (2.1-6.9); NEUTROPHILS % 80.6 % (38.7-80.0); PLATELET COUNT 497 x10e3/uL (140-360); RED BLOOD COUNT 3.86 x10e6/uL (3.6-5.1); RED CELL DISTRIBUTION WIDTH 15.2 % (11.7-14.4)
[2021-02-04] MEDS: MORPHINE SULFATE INJ 4 MG/ML INJ 1ML IV PRN ×2 (11:38→18:25)
[2021-02-04] MEDS: ONDANSETRON HCL INJ 2MG/ML 2ML 2 MG/ML VIAL IV PRN (11:38)
[2021-02-04] MEDS ORDERED: LACTATED RINGER'S 1,000 ML INJ ONE (13:30)
[2021-02-04] MEDS: MEROPENEM 1 GM in SODIUM CHLORIDE 0.9% 100 ML IV SCH ×2 (14:26→22:17)
[2021-02-05] VITALS (9 sets, daily range): BP systolic 144–168; BP diastolic 66–81
[2021-02-05] MEDS: MEROPENEM 1 GM in SODIUM CHLORIDE 0.9% 100 ML IV SCH ×3 (05:10→21:50)
[2021-02-05] MEDS: METRONIDAZOLE 500MG/NS 100ML 100 ML IV SCH ×5 (05:17→23:33)
[2021-02-05] MEDS: METOCLOPRAMIDE HCL 10 MG/2ML VIAL IV SCH ×3 (06:15→21:50)
[2021-02-05] MEDS: INSULIN REGULAR, HUMAN 100 UNIT/1 ML SQ SCH ×4 (08:27→21:50)
[2021-02-05] MEDS: ONDANSETRON HCL INJ 2MG/ML 2ML 2 MG/ML VIAL IV PRN ×2 (08:56→23:30)
[2021-02-05] MEDS: MORPHINE SULFATE INJ 4 MG/ML INJ 1ML IV PRN ×3 (08:56→23:30)
[2021-02-05 15:04] LABS: ANION GAP 14.9 mmol/L (8-16); CALCIUM 8.4 mg/dL (8.4-10.2); CREATININE, SERUM 0.59 mg/dL (0.57-1.11)
[2021-02-05 15:12] LABS: POTASSIUM 2.9 mmol/L (3.5-5.1)
[2021-02-05] MEDS: POTASSIUM CHLORIDE 20 MEQ TAB CR PO PRN (15:17)
[2021-02-05] MEDS ORDERED: POTASSIUM CHLORIDE 20 MEQ TAB CR PO ONE (15:55)
[2021-02-05] MEDS: PROMETHAZINE HCL 25 MG TAB PO PRN (19:19)
[2021-02-05] MEDS ORDERED: SODIUM CHLORIDE 0.9% 250ML 250 ML ONE (21:45)
[2021-02-06] VITALS (7 sets, daily range): BP systolic 104–159; BP diastolic 62–87
[2021-02-06] MEDS: METOCLOPRAMIDE HCL 10 MG/2ML VIAL IV SCH ×3 (05:20→22:15)
[2021-02-06] MEDS: MEROPENEM 1 GM in SODIUM CHLORIDE 0.9% 100 ML IV SCH ×2 (05:20→14:24)
[2021-02-06] MEDS: MORPHINE SULFATE INJ 4 MG/ML INJ 1ML IV PRN ×4 (05:29→23:50)
[2021-02-06] MEDS: ONDANSETRON HCL INJ 2MG/ML 2ML 2 MG/ML VIAL IV PRN ×4 (05:29→23:50)
[2021-02-06] MEDS: METRONIDAZOLE 500MG/NS 100ML 100 ML IV SCH ×2 (06:28→11:27)
[2021-02-06 08:14] LABS: ANION GAP 17.4 mmol/L (8-16); CALCIUM 8.3 mg/dL (8.4-10.2); CREATININE, SERUM 0.66 mg/dL (0.57-1.11); POTASSIUM 3.4 mmol/L (3.5-5.1)
[2021-02-06] MEDS: POLYETHYLENE GLYCOL 3350 17 GM PACK PO SCH (08:16)
[2021-02-06] MEDS: PROMETHAZINE HCL 25 MG TAB PO PRN (08:17)
[2021-02-06] MEDS: INSULIN REGULAR, HUMAN 100 UNIT/1 ML SQ SCH ×4 (08:21→21:00)
[2021-02-06 15:25] LABS: % IRON SATURATION 48 % (15-50); IRON 124 ug/dL (50-170); TOTAL IRON BINDING CAPACITY 259 ug/dL (261-478); TRANSFERRIN 185 mg/dL (180-382)
[2021-02-06] MEDS ORDERED: CEFTRIAXONE 1 GM in SODIUM CHLORIDE 0.9% 50ML 50 ML IV SCH (16:00)
[2021-02-06] MEDS ORDERED: SENNA-S TABLET PO SCH (21:00)
[2021-02-07] VITALS: BP 166/84
[2021-02-07 04:00] VITALS: BP 125/72
[2021-02-07] MEDS: METOCLOPRAMIDE HCL 10 MG/2ML VIAL IV SCH ×2 (06:26→14:40)
[2021-02-07 07:04] LABS: CALCIUM 8.6 mg/dL (8.4-10.2); CREATININE, SERUM 0.75 mg/dL (0.57-1.11)
[2021-02-07] MEDS: POLYETHYLENE GLYCOL 3350 17 GM PACK PO SCH (08:07)
[2021-02-07] MEDS: INSULIN REGULAR, HUMAN 100 UNIT/1 ML SQ SCH ×2 (08:13→11:47)
[2021-02-07 08:32] VITALS: BP 142/67
[2021-02-07 09:59] VITALS: BP 142/67
[2021-02-07] MEDS: POTASSIUM CHLORIDE 20 MEQ TAB CR PO PRN (10:18)
[2021-02-07 12:08] VITALS: BP 142/69
[2021-02-07] MEDS: ONDANSETRON HCL INJ 2MG/ML 2ML 2 MG/ML VIAL IV PRN (13:57)
[2021-02-07 15:50] VITALS: BP 119/59
[2021-02-07] MEDS ORDERED: POTASSIUM CHLORIDE 20 MEQ TAB CR PO ONE (17:00)
== END 2021-02-07 16:35 | disposition home or self-care (01) | DRG 872 ==
LOC: ER 18:20 → ERHOLD 21:40 → MED/SURG3 23:30
PROVIDERS: ADMIT Internal Medicine; ATTEND Internal Medicine
PROC: 02HV33Z Insertion of Infusion Device into Superior Vena Cava, Percutaneous Approach (ICD-10-PCS; principal; 2021-02-01)
PROC: B548ZZA Ultrasonography of Superior Vena Cava, Guidance (ICD-10-PCS; 2021-02-01)
DX: A41.59 Other Gram-negative sepsis (principal); C25.0 Malignant neoplasm of head of pancreas; N17.9 Acute kidney failure, unspecified; K31.1 Adult hypertrophic pyloric stenosis; K83.09 Other cholangitis; E46 Unspecified protein-calorie malnutrition; E87.6 Hypokalemia; I10 Essential (primary) hypertension; E11.9 Type 2 diabetes mellitus without complications; D50.9 Iron deficiency anemia, unspecified; E77.8 Other disorders of glycoprotein metabolism; E88.09 Other disorders of plasma-protein metabolism, not elsewhere classified; K57.30 Diverticulosis of large intestine without perforation or abscess without bleeding; Z90.49 Acquired absence of other specified parts of digestive tract; Z86.718 Personal history of other venous thrombosis and embolism; Z88.0 Allergy status to penicillin; Z88.8 Allergy status to other drugs, medicaments and biological substances; Z79.4 Long term (current) use of insulin; Z68.25 Body mass index [BMI] 25.0-25.9, adult
CPT/HCPCS: 36415; 36569; 71045; 74177; 80048; 80053; 81001; 82150; 82550; 82553; 82948; 83540; 83605; 83690; 83735; 84132; 84466; 84484; 85025; 86301; 87040; 87071; 87086; 87186; 87205; 87493; 96367; 96372; 96376; 99284; J0692; J0696; J1100; J1200; J1750; J1817; J2185; J2270; J2405; J2765; J3480; J7030; J7040; J7050; J7121; Q9967